=== PATIENT | female | born 1995 | race Caucasian/White ===

== ENCOUNTER 2020-06-20 04:19 | Emergency (ER) | payer MEDICARE, MEDICAID ==
[~2020-06-20] VITALS: Ht 167.6 cm; Wt 124.7 kg
[~2020-06-20 04:19] MED LIST: PROAIR HFA8.5 GM INH; PROZAC10 MG PO
[2020-06-20] MEDS ORDERED: PRAZOSIN 1 MG CA1 M1 PO (04:29)
[2020-06-20] MEDS ORDERED: SEROQUEL200 MG PO (04:30)
[2020-06-20 04:54] VITALS: BP 148/91
== END 2020-06-20 04:50 | disposition home or self-care (01) ==
LOC: M.ERS 04:19
DX: F15.10 Other stimulant abuse, uncomplicated (principal); R44.2 Other hallucinations; I10 Essential (primary) hypertension; F17.210 Nicotine dependence, cigarettes, uncomplicated